=== PATIENT | male | born 1970 | race Caucasian/White ===

== ENCOUNTER 2021-07-20 20:18 | Emergency (ER) | payer SELFPAY ==
[2021-07-20] MEDS ORDERED: HYDROmorphone 1 MG/ML Syringe IVPUSH ONE ×4 (20:31→22:22)
[2021-07-20] MEDS ORDERED: Ondansetron 4 MG/2 ML SDV IVPUSH ONE (20:31)
[2021-07-20] MEDS ORDERED: Diphtheria,Pertussis(Acell),Tetanus Vaccine 0.5 ML Syringe IM ONE (21:44)
[2021-07-20] MEDS ORDERED: Bacitracin Oint 1 GM U/D Packet TOP ONE (21:48)
[2021-07-20] MEDS ORDERED: HYDROmorphone 1 MG/ML Syringe ONE (22:09)
[2021-07-20] MEDS ORDERED: Ketorolac 30 MG/ML SDV IVPUSH ONE (22:21)
[2021-07-20 23:22] LABS: CORONAVIRUS COVID-19 NAA NEGATIVE (NEGATIVE)
== END 2021-07-20 23:38 ==
LOC: JP.ED 20:18
DX: T79.A11A Traumatic compartment syndrome of right upper extremity, initial encounter (principal); Z20.822 Contact with and (suspected) exposure to COVID-19; V86.52XA Driver of snowmobile injured in nontraffic accident, initial encounter
CPT/HCPCS: 0241U; 36415; 73060; 73080; 73090; 80053; 80307; 82550; 85025; 96374; 96375; 96376; 99285; J1170; J1885; J2405